=== PATIENT | male | born 1955 | race Native Hawaiian/Other Pacific Islander ===

== ENCOUNTER 2017-04-21 15:00 | Outpatient (CLI) | payer BC | END 2017-04-21 23:49 | disposition home or self-care (01) | LOC: RAD 15:00 | DX: S32.592A Other specified fracture of left pubis, initial encounter for closed fracture (principal) ==

== ENCOUNTER 2017-06-26 08:19 | Outpatient (CLI) | payer BC | END 2017-06-26 22:53 | disposition home or self-care (01) | LOC: NM 08:19 | DX: R07.89 Other chest pain (principal) | CPT/HCPCS: A9500 ==

== ENCOUNTER 2018-12-03 10:55 | Outpatient (CLI) | payer OTHER | END 2018-12-03 20:17 | disposition home or self-care (01) | LOC: US 10:55 | DX: R60.0 Localized edema (principal) ==

== ENCOUNTER 2019-09-03 16:07 | Outpatient (CLI) | payer OTHER ==
[2019-09-03 16:29] LABS: PLATELET COUNT 336 K/uL (142-355)
[2019-09-03 16:42] LABS: POTASSIUM 3.9 mmol/L (3.6-5.2)
== END 2019-09-03 19:19 | disposition home or self-care (01) ==
LOC: LABW 16:07
PROVIDERS: Internal Medicine Cardiovascular Disease
DX: Z79.899 Other long term (current) drug therapy (principal)
CPT/HCPCS: 36415; 80053; 80061; 85027

== ENCOUNTER 2019-12-09 09:23 | Outpatient (CLI) | payer OTHER | END 2019-12-09 19:06 | disposition home or self-care (01) | LOC: US 09:23 | DX: R14.0 Abdominal distension (gaseous) (principal); R63.0 Anorexia; R11.0 Nausea; R10.11 Right upper quadrant pain ==

== ENCOUNTER 2019-12-12 08:11 | Outpatient (CLI) | payer OTHER ==
[~2019-12-12] VITALS: Ht 182.9 cm; Wt 88.5 kg
== END 2019-12-12 23:24 | disposition home or self-care (01) ==
LOC: NM 08:11
DX: R14.0 Abdominal distension (gaseous) (principal); R63.0 Anorexia; R11.0 Nausea; R10.11 Right upper quadrant pain
CPT/HCPCS: A9537; J2270

== ENCOUNTER 2020-09-10 07:33 | Outpatient (CLI) | payer OTHER ==
[2020-09-24 14:16] LABS: POTASSIUM 4.1 mmol/L (3.6-5.2)
== END 2020-09-10 16:00 | disposition home or self-care (01) ==
LOC: LABW 07:33
PROVIDERS: ATTEND Internal Medicine Cardiovascular Disease
DX: E11.9 Type 2 diabetes mellitus without complications (principal); E78.5 Hyperlipidemia, unspecified; Z79.899 Other long term (current) drug therapy
CPT/HCPCS: 80048; 80061; 80076; 83036; 84153; 84443

== ENCOUNTER 2022-06-15 12:32 | Outpatient (CLI) | payer OTHER, MEDICARE | END 2022-06-15 20:58 | disposition home or self-care (01) | LOC: MRI 12:32 | PROVIDERS: ATTEND Physician Assistant | DX: M25.512 Pain in left shoulder (principal) ==